=== PATIENT | male | born 1975 | race Caucasian/White ===

== ENCOUNTER 2024-05-08 11:51 | Emergency (ER) | payer SELFPAY ==
[2024-05-08 12:51] LABS: #Basophils 0.06 10x3/uL (0.0-0.2); %Basophils 1.2 % (0.0-1.0); %Eosinophils 1.8 % (0.0-10.0); %Monocytes 6.5 % (0.0-10.0); %Neutrophils 44.1 % (42.0-75.0); Hematocrit 46.6 % (42.0-52.0); Hemoglobin 16.3 g/dL (14.0-18.0); Mean Corpuscular Hemoglobin 30.1 pg (27.0-31.0); Mean Platelet Volume 8.9 fL (7.4-10.4); Platelet Count 197 10x3/uL (130-400); RBC Distribution Width 13.9 % (11.5-14.5); Red Blood Cell (RBC) Count 5.42 mill/uL (4.70-6.10)
[2024-05-08 13:12] LABS: Acetaminophen Less than 10 mcg/mL (10.0-30.0); Alcohol 290.6 mg/dL (Less than 10); Salicylate Less than 8.0 mg/dL (15.0-30.0)
[2024-05-08 13:13] LABS: ALT (SGPT) 33 U/L (8-55); AST (SGOT) 25 U/L (5-34); Albumin 4.8 g/dL (3.5-5.0); Alkaline Phosphatase 94 U/L (40-110); Anion Gap 15 mmol/L (10-20); BUN (Urea Nitrogen) 12 mg/dL (8.9-20.6); Bilirubin, Total 0.5 mg/dL (0.2-1.2); Calc. Creatinine Clearance 0 mL/min (70-130); Calcium 9.7 mg/dL (7.8-10.44); Carbon Dioxide 28 mmol/L (22-29); Chloride 103 mmol/L (98-107); Estimated GFR 103; Globulin 3.5 g/dL (2.4-3.5); Glucose 106 mg/dL (70-105); Potassium 3.5 mmol/L (3.5-5.1); Protein, Total 8.3 g/dL (6.0-8.3); Sodium 142 mmol/L (136-145)
[2024-05-08 13:19] LABS: Amphetamine Not Detected (NotDetected); Barbiturates Screen Not Detected (NotDetected); Benzodiazepine Screen Not Detected (NotDetected); Cocaine Metabolite Screen Not Detected (NotDetected); Methadone Not Detected (NotDetected); Methamphetamine Not Detected (NotDetected); Opiate Screen Not Detected (NotDetected); Oxycodone Screen Not Detected (NotDetected); Phencyclidine (PCP) Not Detected (NotDetected); THC/Cannabinoid Screen Not Detected (NotDetected); Tricyclic Screen Not Detected (NotDetected)
[2024-05-08] MEDS ORDERED: Lorazepam 2 MG/ML VIAL ONE (13:26)
[2024-05-08] MEDS ORDERED: Haloperidol Lactate 5 MG/ML VIAL ONE (13:26)
[2024-05-08] MEDS ORDERED: diphenhydrAMINE 50 MG/ML VIAL ONE (13:26)
[2024-05-08 13:30] LABS: Troponin I Less than 0.010 ng/mL (< 0.028)
[2024-05-09] MEDS ORDERED: Famotidine/PF 20 mg/2ml Vial ONE (06:18)
[2024-05-09] MEDS ORDERED: Dicyclomine 20 MG TAB ONE (06:18)
== END 2024-05-09 07:16 | disposition home or self-care (01) ==
LOC: ERS 11:51
DX: F10.129 Alcohol abuse with intoxication, unspecified (principal); R10.84 Generalized abdominal pain; R45.851 Suicidal ideations; E11.40 Type 2 diabetes mellitus with diabetic neuropathy, unspecified; B20 Human immunodeficiency virus [HIV] disease; Y90.8 Blood alcohol level of 240 mg/100 ml or more; Z55.0 Illiteracy and low-level literacy
CPT/HCPCS: 36415; 80053; 80306; 80307; 84443; 84484; 85025; 96374; 96375; J1200; J1630; J2060; S0028